=== PATIENT | female | born 1940 | race African-American/Black ===

== ENCOUNTER 2017-04-17 07:52 | Inpatient (IN) | payer OTHER, BC ==
[~2017-04-17] VITALS: Ht 162.6 cm; Wt 81.5 kg
--- NOTE | ~2017-04-17 | HC ---
[facility] [place] [address] CONSULTATION Name: LESLI SUN Mejia Room #: [facility] IN M.R.#: [id number] Admission: 04/17/17 Attend Phys: Gabino Renner DO Discharge: Date of : 39 Report #: [id number] THIS REPORT FOR: //name// CC: Camilo Renner DATE OF SERVICE: 04/17/2017 I have been asked to evaluate this 76-year-old lady who has come to the emergency room with chief complaint of abdominal pain, vomiting with progressive distention of the abdomen in the last 12 hours. The patient totally unable to accept placement of an NG tube by the nursing staff or myself. She is stating that she had the onset of vomiting last p.m., the cramping has intensified, and she denies passing flatus or stool in the last 24 hours. PAST MEDICAL HISTORY: Consistent with hypertension, anemia, hypothyroidism, hyperlipidemia, and GERD. PAST SURGICAL HISTORY: Pelvic surgery 35-40 years ago, remote with what appears to be removal of a fibroid tumor. This was through a low Pfannenstiel incision. MEDICATIONS: Atenolol 25 mg daily, lovastatin, Mevacor 20 mg daily; Synthroid 0.088 mg daily, and Protonix. ALLERGIES: No known drug allergies. SOCIAL HISTORY: Unremarkable. She denies smoking cigarettes, does not drink alcohol. Lives by herself, has one daughter. REVIEW OF SYSTEMS: A 10-point review of systems essentially noncontributory. She has been in good health. PHYSICAL EXAMINATION: GENERAL: Reveals an elderly -Swiss lady, resting comfortably in bed, conversant, daughter at the bedside. VITAL SIGNS: Stable. She is afebrile. HEENT: Pupils are equal, round, react to light. Extraocular movements within normal limits. No scleral icterus. NECK: Supple, no adenopathy. LUNGS: Clear bilaterally. CARDIOVASCULAR: Regular rate and rhythm. ABDOMEN: Mild distention. No guarding or rebound, some mild tenderness in the lower abdomen. RECTAL: Not performed. NEUROLOGIC: She is oriented x3, bilateral motor symmetry. [facility] [address] [place] [address] CONSULTATION Name: LESLI SUN Mejia Room #: 241-P ADM IN ..#: [id number] Admission: 04/17/17 Attend Phys: Gabino Renner DO Discharge: Date of : 39 Report #: [id number] LABORATORY DATA: Demonstrates labs essentially within normal limits. The CT scan is consistent with a distal small-bowel obstruction. DIAGNOSTIC IMPRESSION: Since the patient will not accept placement of an NG tube, IV fluids and n.p.o. status would be recommended now. If the patient has progressive distention or more severe pain in the next 12-24 hours, she will need diagnostic laparoscopy and possible exploratory laparotomy with release of the small-bowel obstruction. Thank you for allowing us to participate in her care and we will follow her with you. <ELECTRONICALLY SIGNED> By: Mateo Rogers MD, FACS 04/21/17 1008 1618 0135 Mateo Rogers MD, FACS /nt
--- NOTE | ~2017-04-17 | EKG ---
[place] [address] [employer] [place] [address] ELECTROCARDIOGRAM REPORT Name: LESLI SUN Mejia Room #: 241-P ADM IN M.R.#: [id number] Admission: 04/17/17 Attend Phys: Gabino Renner DO Discharge: Date of : 39 Report #: [id number] THIS REPORT FOR: //name// [facility] Test Date: 2017-04-20 Test Time: 14:32:53 Pat Name: LESLI SUN Department: Room: 241 Gender: F Coat Joiner: Bernardino SINGH : 1940 Requested By: Jenelle Melara Order Number: [id number] MD: Madhav Whelan Measurements Intervals [place] Rate: 116 P: 0 PA: 88 QRS: 12 QRSD: 108 T: 231 QT: 280 QTc: 389 Interpretive Statements Atrial flutter with 2-1 AV conduction RSR' in V1 or V2, right VCD Nonspecific repol abnormality, no significant change was found Electronically Signed On 04-22-2017 8:41:57 CDT by Madhav Whelan [email or web address] <ELECTRONICALLY SIGNED> By: Madhav Whelan MD, [facility] 04/22/17 0841 1432 143 Madhav Whelan MD, [facility] /EPI
--- NOTE | ~2017-04-17 | HC ---
[facility] [place] [address] CONSULTATION Name: LESLI SUN Mejia Room #: 429-P [facility] IN M.R.#: [id number] Admission: 04/17/17 Attend Phys: Gabino Renner, Discharge: 04/26/17 Date of : 39 Report #: [id number] THIS REPORT FOR: //name// CC: Camilo Renner DATE OF SERVICE: 04/20/2017 PULMONARY CRITICAL CARE CONSULTATION REFERRING PROVIDER: Mateo Rogers M.D. REASON FOR CONSULTATION: Arrest, pulmonary embolism. HISTORY OF PRESENT ILLNESS: Our group was responded emergently to code blue call. The patient was on 4 North in room 406 and had a witnessed arrest. Had been ambulating in the miller 3 days postoperative from adhesiolysis for small-bowel obstruction. No other significant interventions, ambulating and plans to discharge. However, while ambulating, the patient became unresponsive, taken back to room and initially had CPR due to lack of pulse and bag ventilation. When finally connected to telemetry monitoring, the patient had tachycardia, pulse had returned after just a couple of minutes of CPR. Presumed PE was the diagnosis. The patient required emergent intubation, which I performed as well as placed on heparin after giving an IV bolus prior to CT imaging. The patient was then stabilized on 4 North and taken to CT scan pulmonary emboli work and is now in ICU on mechanical ventilatory support, speaking with daughter. By other history, the patient has no other cardiac or pulmonary history. ALLERGIES: None known. PAST MEDICAL HISTORY: 1. Hypertension. 2. Hypothyroidism. 3. Anemia, unclear etiology, currently on iron replacement. OUTPATIENT MEDICATIONS: Include iron, Protonix, Synthroid, lovastatin and atenolol. SOCIAL HISTORY: Never smoker. No alcohol consumption. FAMILY HISTORY: Not obtainable due to current status. [facility] [address] [place] [address] CONSULTATION Name: LESLI SUN Room #: 429-P [facility]#: [id number] Admission: 04/17/17 Attend Phys: Gabino Renner DO Discharge: 04/26/17 Date of : 39 Report #: [id number] REVIEW OF SYSTEMS: Otherwise, unobtainable due to her current neurologic status. PHYSICAL EXAMINATION: VITAL SIGNS: Afebrile. Pulse 110, but regular; respiratory rate 30 and blood pressure 140/72. GENERAL: This is an elderly woman, arousable with some head nodding at this time, obviously uncomfortable. ENT: A 7.[address] Some dental loss noted. No oropharyngeal erythema or edema appreciated. NECK: Supple. Mild jugular venous distention noted. LUNGS: Essentially clear. No wheezes or crackles. CARDIOVASCULAR: Heart regular, but tachycardic. No murmurs appreciated. ABDOMEN: Distended. A midline incision was clean and dry, with shanthi in place. Diminished bowel sounds noted. EXTREMITIES: Cool distally, but 2+ pulses noted both in the upper and lower extremities throughout. LABORATORY DATA: White blood cell count 12,000, hemoglobin 10, hematocrit 33 and platelet count 219,000. Sodium is 138, potassium 5.3, chloride 107, bicarbonate 18, BUN 17, creatinine 0.[address] scan of the chest PE protocol reveals multiple pulmonary emboli, as described in the HPI. Dense right basilar atelectasis also appreciated with minimal right and left pleural effusions also noted. IMPRESSION: 1. Venous thromboembolism with significant pulmonary emboli, causing acute arrest with minimal need for CPR. 2. Status post cardiopulmonary arrest. 3. Acute respiratory failure secondary to above. 4. Right basilar infiltrate or atelectasis. The patient could have aspirated during event or may just be dense atelectasis. Would cover with antibiotics for aspiration pneumonia and check sputum cultures to prove it otherwise. 5. History of hypertension. 6. History of hypothyroidism. SUGGESTIONS: 1. As outlined above, continue with heparin drip, but if remains stable, convert to Lovenox. 2. Discussed at length with nursing, Dr. Jacobs, Dr. Rogers and the patient's daughter. Total critical care time, not including intubation or any other procedures, was 90 minutes to this point. <ELECTRONICALLY SIGNED> By: Bunny Cook MD 04/28/17 1304 1551 0059 Bunny Cook MD /nt
--- NOTE | ~2017-04-17 | S ---
[facility] [place] [address] SURGICAL PATH RPT PROCEDURE Name: LESLI SUN Mejia Room #: 429-P ADM IN M.R.#: [id number] Admission: 04/17/17 Date of : 39 Discharge: Report #: [id number] Path Case #: [id number] PATHOLOGY REPORT COLLECTION DATE: 04/18/2017 RECEIVED DATE: 04/19/2017 SUBMITTING PHYS: Dr. Mateo Rogers OTHER PHYS: Dr. Gabino Braswell * AMENDED (CORRECTED) REPORT * SPECIMEN(S) RECEIVED: A.Adhesive bands * * * * * * * * * * * * FINAL DIAGNOSIS: Soft tissue, "adhesive band," removal: - Dense fibrovascular connective tissue associated with congestion compatible with an adhesive band. (IUV:mgr; 04/20/2017) COMMENT: This amendment is issued to correct the patient's date of -04/21/2017 PATHOLOGIST: Gay Patino M.D. REPORT ELECTRONICALLY SIGNED BY: Gay Patino M.D. DATE/TIME: 04/25/2017 09:46 * * * * * * * * * * * * GROSS PATHOLOGY: The specimen is received in formalin, labeled "Mustapha, adhesive band are two glistening, garza, and red brown tissue segments each averaging 3.7 cm in length by 0.3 cm in diameter. The specimen is totally submitted as A1. (EARNEST; 04/19/2017) CLINICAL HISTORY: Umbilical hernia INITIAL CPT CODE(S): 87865 Professional services performed by [facility] at [facility] [address] , [place] [address] [facility] [address] [place] [address] SURGICAL PATH RPT PROCEDURE Name: LESLI SUN Room #: 429-P ADM IN M.R.#: [id number] Admission: 04/17/17 Date of : 39 Discharge: Report #: [id number] Path Case #: [id number] [facility] by [facility] at [address] [place] [address], [facility] [address], [place] [address]. Aj Draper [facility] [address] [address] PHONE: [phone] DIRECTOR: Yanick Ariza M.D. * * * END OF REPORT * * *
--- NOTE | ~2017-04-17 | O ---
[facility] [place] [address] OPERATIVE REPORT Name: LESLI SUN Mejia Room #: 241-P [facility] IN M.R.#: [id number] Admission: 04/17/17 Attend Phys: Gabino Renner DO Discharge: Date of : 39 Report #: [id number] THIS REPORT FOR: //name// CC: Camilo Renner DATE OF SERVICE: 04/18/2017 PREOPERATIVE DIAGNOSES: 1. Small-bowel obstruction. 2. A 1.5 cm umbilical hernia. POSTOPERATIVE DIAGNOSES: 1. Small-bowel obstruction secondary to dense matted adhesions of the distal ileum adherent to the apex of the uterus. 2. A 1.5 cm umbilical hernia. PROCEDURE: Diagnostic laparoscopy with conversion to exploratory laparotomy with lysis of adhesions 25 minutes and release of small-bowel obstruction and open primary repair of 1.5 cm umbilical hernia. SURGEON: Mateo Rogers M.D. GEAR MACHINE OPERATOR GENERAL: Patty Barfield MS3. INDICATIONS: A 76-year-old lady who presented in the last 24 hours to the Emergency Department with chief complaint of cramping abdominal pain associated with nausea and vomiting. The pain began the evening prior to admission. She has refused an NG tube in the Emergency Department by the nursing staff as well as myself. She was placed on IV fluids and bowel rest and has progressive more distention at the time of reexamination. She now requires emergent surgery. OPERATIVE PROCEDURE: The patient had a thorough discussion of the procedure, benefits and risks. Her daughter was in attendance. She gave informed consent to proceed. She was brought to the operating room suite and had satisfactory induction of general endotracheal anesthesia. The patient had a Viveros catheter placed. She had a sterile prep and paint of the entire abdomen with DuraPrep solution. After draping was completed, an appropriate timeout was then performed. Initially, 0.5% plain Naropin was injected at all trocar sites. Initially, entrance to the peritoneal cavity was obtained through a left subcostal Optiport ____ trocar device with a 5 mm laparoscope. The peritoneal cavity was entered. Pneumoperitoneum was established. Two lateral 5 mm trocar ports were then placed under direct vision. Lysis of adhesions to the laparoscope with the sharp cold scissors was performed for approximately 20 minutes. No headway was being made as far as delivering the obstructed small bowel from the pelvis. An intraoperative decision was then made to perform an [address] [address] OPERATIVE REPORT Name: LESLI SUN Mejia Room #: 241-P [facility] IN [facility]#: [id number] Admission: 04/17/17 Attend Phys: Gabino Renner DO Discharge: Date of : 39 Report #: [id number] exploratory laparotomy. The pneumoperitoneum was evacuated and trocars left in place. Attention was turned to the midline of the abdomen from slightly above the umbilicus to below and an exploratory laparotomy incision was performed. The small bowel was delivered in the field. The distal collapsed terminal ileum was identified. Matted loops of bowel over the terminal ileum were adherent to each other as well as adherent to the apex of the uterus. These were taken down with sharp dissection. The entire small bowel was freed up. There was a segment, approximately 10-15 cm in length of a possible closed loop obstruction. None of the bowel appeared ischemic in any way. The bowel was not strictured. Milking of succus entericus bowel contents distally was performed. Milking of small bowel contents proximally to the ligament of Treitz was also performed. Approximately 800 mL of greenish cloudy foul smelling fluid was evacuated from the NG tube. The NG tube was properly positioned in the stomach. No other intra-abdominal pathology was noted. After total lysis of adhesions for 25 minutes, the bowel was straightened out. Irrigation with 3 liters of saline was performed. Evacuation of all irrigating contents was accomplished. The fascia was then approximated from the inferior aspect of the incision with a looped #1 PDS running to the mid portion of the wound. The superior aspect of the incision was also approximated and closed with running looped #1 PDS. A 4 x 8 piece of material to minimize adhesions was placed between the bowel and the anterior abdominal wall inferiorly. Each of the #1 PDS sutures were ligated individually and then the tails were ligated together in the mid portion of the wound. The umbilical hernia was repaired by approximating the fascia in the mid portion of the wound. Irrigation of subcutaneous tissues was performed. Skin margins were stapled. The 3 trocar sites to the left of the abdomen where the skin had been opened were stapled shut. Estimated blood loss less than 25 mL. The patient returned to the recovery room in stable and satisfactory condition. <ELECTRONICALLY SIGNED> By: Mateo Rogers MD, FACS 04/21/17 1008 1612 1759 Mateo Rogers MD, FACS /nt
--- NOTE | ~2017-04-17 | EKG ---
[address] [place] [address] ELECTROCARDIOGRAM REPORT Name: LESLI SUN Mejia Room #: 406-P ADM IN M.R.#: [id number] Admission: 04/17/17 Attend Phys: Gabino Renner DO Discharge: Date of : 39 Report #: [id number] THIS REPORT FOR: //name// [facility] Test Date: 2017-04-19 Test Time: 15:08:55 Pat Name: LESLI SUN Department: Room: 406 P Gender: F Laborer General: Bernardino SINGH : 1940 Requested By: Mateo Rogers Order Number: [id number] MD: Madhav Whelan Measurements Intervals [place] Rate: 126 P: 42 DE: 154 QRS: -6 QRSD: 80 T: 210 QT: 345 QTc: 500 Interpretive Statements Sinus tachycardia Abnormal T, diffuse leads No previous ECG available for comparison Electronically Signed On 04-19-2017 17:11:11 CDT by Madhav Whelan [email or web address] <ELECTRONICALLY SIGNED> By: Madhav Whelan MD, [facility] 04/19/17 1711 1508 1508 Madhav Whelan MD, FACC /EPI
--- NOTE | ~2017-04-17 | EKG ---
[address] [address] ELECTROCARDIOGRAM REPORT Name: LESLI SUN Room #: 241-P ADM IN M.R.#: [id number] Admission: 04/17/17 Attend Phys: Gabino Renner DO Discharge: Date of : 39 Report #: [id number] THIS REPORT FOR: //name// [facility] Test Date: 2017-04-20 Test Time: 15:46:48 Pat Name: LESLI SUN Department: Room: 241 P Gender: F Rail [employer] Tabeler: Bernardino SINGH : 1940 Requested By: Gabino Renner Order Number: [id number] MD: Madhav Whelan Measurements Intervals [place] Rate: 137 P: 108 VA: 162 QRS: 8 QRSD: 89 T: 235 QT: 257 QTc: 388 Interpretive Statements Sinus tachycardia Repolarization abnormality, prob rate related Baseline wander in lead(s) II,aVF Compared to ECG 04/19/2017 15:08:55 Sinus tachycardia is replaced atrial flutter Electronically Signed On 04-22-2017 8:42:58 CDT by Madhav Whelan [email or web address] <ELECTRONICALLY SIGNED> By: Madhav Whelan MD, [facility] 04/22/17 0842 1546 1546 Madhav Whelan MD, [facility] /EPI
--- NOTE | ~2017-04-17 | 2DMMODE ---
[facility] [address] [place] [address] 2 D/M-MODE ECHOCARDIOGRAM Name: LESLI SUN Room #: 241-P [facility] IN [facility].#: [id number] Admission: 04/17/17 Attend Phys: Gabino Renner, Discharge: Date of : 39 Date of Service: 04/21/17 0859 Report #: [id number] THIS REPORT FOR: //name// APPROVED REPORT Study performed: 04/20/2017 16:54:26 EXAM: Comprehensive 2D, Doppler, and color-flow Echocardiogram Patient Location: ICU Room #: 241 Status: stat BSA: 1.79 HR: 107 bpm BP: 98/65 mmHg Other Information Study Quality: Good Indications Pulmonary Embolism Pulmonary Hypertension Hypertension/HDD HLP. 2D Dimensions RVDd: 45.02 mm LVEF(%): 71.71 (>50%) IVSd: 12.46 (7-11mm) LVOT Diam: 18.54 (18-24mm) LVDd: 29.85 mm PWd: 12.02 (7-11mm) Ascending Ao: 30.41 (22-36mm) LVDs: 18.04 (25-40mm) Aortic Root: 29.25 mm IVC: 22.00 mm Lee's LVEF: 71.71 % Volumes Left Atrial Volume (Systole) Single Plane 4CH: 40.86 mL Single Plane 2CH: 42.27 mL LA ESV Index: 26.00 mL/m2 Aortic Valve AoV Peak Nirmal.: 1.02 m/s AO Peak Gr.: 4.18 mmHg LVOT Max P.97 mmHg LVOT Max V: 0.86 m/s DEEPAK Vmax: 2.28 cm2 Pulmonary Valve [facility] [address] [place] [address] 2 D/M-MODE ECHOCARDIOGRAM Name: LESLI SUN Room #: [facility]#: [id number] Admission: 04/17/17 Attend Phys: Gabino Renner, Discharge: Date of : 39 Date of Service: 04/21/17 0859 Report #: [id number] PV Peak Nirmal.: 0.70 m/s PV Peak Gr.: 1.98 mmHg Tricuspid Valve TR Peak Nirmal.: 3.32 m/s TR Peak Gr.: 44.01 mmHg PA Pressure: 59.00 mmHg Left Ventricle The left ventricle is normal size. Mild concentric left ventricular hypertrophy. Left ventricular systolic function is normal. LVEF is 65%. This study is not technically sufficient to allow evaluation of the LV diastolic function due to tachycardia. Right Ventricle Right ventricle is dilated. Atria The left atrium size is normal. Right atrium is dilated. Aortic Valve The aortic valve is normal in structure. Aortic valve is calcified. No aortic regurgitation is present. There is no aortic valvular stenosis. Mitral Valve The mitral valve is normal in structure. There is no mitral valve regurgitation noted. No evidence of mitral valve stenosis. Tricuspid Valve The tricuspid valve is normal in structure. There is moderte tricuspid regurgitation. The right atrial pressure is estimated at 15 mmHg. There is moderate pulmonary hypertension. Pulmonic Valve The pulmonary valve is normal in structure. Trace pulmonic regurgitation. Great Vessels The aortic root is normal in size. The inferior vena cava is dilated with no inspiratory collapse. Pericardium Trace pericardial effusion. <Conclusion> The left ventricle is normal size. [facility] [place] [address] 2 D/M-MODE ECHOCARDIOGRAM Name: LESLI SUN Mejia Room #: 241-P [facility] IN M.R.#: [id number] Admission: 04/17/17 Attend Phys: Gabino Renner, Discharge: Date of : 38 Date of Service: 04/21/17 0859 Report #: [id number] Mild concentric left ventricular hypertrophy. Left ventricular systolic function is normal. Right ventricle is dilated. Right atrium is dilated. There is no aortic valvular stenosis. There is no mitral valve regurgitation noted. There is moderte tricuspid regurgitation. The right atrial pressure is estimated at 15 mmHg. There is moderate pulmonary hypertension. <ELECTRONICALLY SIGNED> By: Carlos Henriquez MD 04/21/17 0859 0859 0859 Carlos Henriquez MD /DAVIDE
[2017-04-17 08:17] VITALS: BP 148/62
[2017-04-17] MEDS ORDERED: PROTONIX40 M1 PO (08:34)
[2017-04-17] MEDS ORDERED: LEVOTHYROXIN0.088 MG PO (08:34)
[2017-04-17] MEDS ORDERED: LOVASTATIN 20 M20 MG PO (08:34)
[2017-04-17] MEDS ORDERED: ATENOLOL 25 MG25 M1 PO (08:34)
[2017-04-17 08:36] LABS: ABSOLUTE NEUTROPHILS 6.7 thou/uL (1.4-8.2); BASOPHILS 0.6 % (0.0-2.0); EOSINOPHILS 0.4 % (0.0-3.0); HEMATOCRIT 33.4 % (37.0-47.0); HEMOGLOBIN 10.9 gm/dL (12.0-15.0); LYMPHOCYTES 13.1 % (24.0-44.0); MCH 24.6 pg (26.0-34.0); MCHC 32.6 g/dL (28.0-37.0); MCV 75.5 fL (80.0-100.0); MONOCYTES 4.7 % (1.0-8.0); PLATELET COUNT 408 thou/uL (150-400); POLYS 81.2 % (36.0-66.0); RBC 4.43 mil/uL (4.20-5.00); RDW 23.2 % (10.5-14.5); WBC 8.3 thou/uL (4.0-11.0)
[2017-04-17 08:39] LABS: MANUAL DIFF NO
[2017-04-17 08:40] LABS: CALCIUM 9.9 mg/dL (8.5-10.1); CREATININE 0.7 mg/dL (0.6-1.0); POTASSIUM 4.3 mmol/L (3.5-5.1)
[2017-04-17 08:46] LABS: ALBUMIN 3.1 g/dL (3.4-5.0); TOTAL BILIRUBIN 0.2 mg/dL (<0.1-1.0); TOTAL PROTEIN 7.9 g/dL (6.4-8.2)
[2017-04-17 10:24] LABS: URINE BILIRUBIN NEGATIVE (Negative); URINE BLOOD NEGATIVE (Negative); URINE COLOR YELLOW; URINE GLUCOSE-RANDOM* NEGATIVE (Negative); URINE KETONES NEGATIVE (Negative); URINE PROTEIN (DIPSTICK) NEGATIVE (Negative); URINE SPECIFIC GRAVITY 1.015 (1.003-1.035); URINE UROBILINOGEN 0.2 E.U./dl (0.2-1.0)
[2017-04-17 10:25] LABS: URINE LEUKOCYTES-REFLEX TRACE (Negative)
[2017-04-17 14:46] VITALS: BP 156/92
[2017-04-17 15:46] VITALS: BP 151/83
[2017-04-17 16:30] VITALS: BP 146/73
[2017-04-17 19:37] VITALS: BP 138/62
[2017-04-18] VITALS (7 sets, daily range): BP systolic 110–137; BP diastolic 56–72
[2017-04-18 05:19] LABS: HEMOGLOBIN 11.7 gm/dL (12.0-15.0); MCHC 31.5 g/dL (28.0-37.0); MCV 76.2 fL (80.0-100.0); PLATELET COUNT 403 thou/uL (150-400); RBC 4.86 mil/uL (4.20-5.00); RDW 23.3 % (10.5-14.5); WBC 4.6 thou/uL (4.0-11.0)
[2017-04-18 05:21] LABS: MANUAL DIFF YES
[2017-04-18 05:40] LABS: CALCIUM 9.1 mg/dL (8.5-10.1); CREATININE 0.7 mg/dL (0.6-1.0); POTASSIUM 4.3 mmol/L (3.5-5.1)
[2017-04-18 06:36] LABS: ABSOLUTE NEUTROPHILS 3.9 thou/uL (1.4-8.2); ANISOCYTOSIS 3+; ATYPICAL LYMPHS 1 %; MACROCYTES 1+; MICROCYTES 2+; NUCLEATED RBCS 0 /100WBC; TOTAL CELL COUNT 100
[2017-04-18 14:29] LABS: % SATURATION 6 % (20-39); IRON 18 ug/dL (50-170); TIBC 319 ug/dL (250-450); UIBC 301 ug/dL
[2017-04-19 03:30] VITALS: BP 138/61
[2017-04-19 06:23] LABS: HEMATOCRIT 34.4 % (37.0-47.0); HEMOGLOBIN 11.1 gm/dL (12.0-15.0); MCH 24.4 pg (26.0-34.0); MCHC 32.2 g/dL (28.0-37.0); MCV 75.8 fL (80.0-100.0); RBC 4.54 mil/uL (4.20-5.00); WBC 6.7 thou/uL (4.0-11.0)
[2017-04-19 06:24] LABS: MANUAL DIFF YES; PLATELET COUNT 269 thou/uL (150-400)
[2017-04-19 06:34] LABS: CALCIUM 8.2 mg/dL (8.5-10.1); CREATININE 0.8 mg/dL (0.6-1.0); POTASSIUM 4.6 mmol/L (3.5-5.1)
[2017-04-19 08:25] VITALS: BP 131/66
[2017-04-19 08:41] LABS: ABSOLUTE NEUTROPHILS 5.8 thou/uL (1.4-8.2); ANISOCYTOSIS 2+; METAMYELOCYTES 3 %; PLATELET ESTIMATE NORMAL; POLYCHROMASIA SLIGHT; TOTAL CELL COUNT 100
[2017-04-19 11:36] VITALS: BP 125/72
[2017-04-19 12:45] VITALS: BP 133/70
[2017-04-19 15:47] VITALS: BP 139/72
[2017-04-19 20:00] VITALS: BP 143/64
[2017-04-20] VITALS (18 sets, daily range): BP systolic 90–152; BP diastolic 55–76
[2017-04-20 06:20] LABS: HEMATOCRIT 31.5 % (37.0-47.0); MCH 24.6 pg (26.0-34.0); MCHC 31.9 g/dL (28.0-37.0); MCV 77.1 fL (80.0-100.0); PLATELET COUNT 230 thou/uL (150-400); RBC 4.08 mil/uL (4.20-5.00); WBC 8.9 thou/uL (4.0-11.0)
[2017-04-20 06:31] LABS: CALCIUM 8.7 mg/dL (8.5-10.1); CREATININE 0.7 mg/dL (0.6-1.0); POTASSIUM 4.5 mmol/L (3.5-5.1); TOTAL BILIRUBIN 0.3 mg/dL (<0.1-1.0)
[2017-04-20 06:40] LABS: MANUAL DIFF YES
[2017-04-20 08:13] LABS: ABSOLUTE NEUTROPHILS 7.6 thou/uL (1.4-8.2); TOTAL CELL COUNT 100
[2017-04-20 08:15] LABS: ANISOCYTOSIS 2+
[2017-04-20 14:58] LABS: HEMATOCRIT 33.4 % (37.0-47.0); HEMOGLOBIN 10.3 gm/dL (12.0-15.0); MCH 24.1 pg (26.0-34.0); MCHC 30.7 g/dL (28.0-37.0); MCV 78.3 fL (80.0-100.0); RBC 4.27 mil/uL (4.20-5.00); RDW 23.4 % (10.5-14.5); WBC 12.3 thou/uL (4.0-11.0)
[2017-04-20 15:04] LABS: ANION GAP 13 mmol/L (7-16); BUN 17 mg/dL (7-18); CALCIUM 9.1 mg/dL (8.5-10.1); CHLORIDE 107 mmol/L (98-107); CO2 18 mmol/L (21-32); CREATININE 0.8 mg/dL (0.6-1.0); GLUCOSE 118 mg/dL (74-106); POTASSIUM 5.3 mmol/L (3.5-5.1); SODIUM 138 mmol/L (136-145)
[2017-04-20 15:12] LABS: ALKALINE PHOSPHATASE 69 U/L (46-116); SGOT 48 U/L (15-37); SGPT 34 U/L (30-65); TOTAL BILIRUBIN 0.3 mg/dL (<0.1-1.0); TOTAL PROTEIN 6.4 g/dL (6.4-8.2); TROPONIN-I < 0.04 ng/mL (<0.04-0.07)
[2017-04-20 16:41] LABS: ABG SAMPLE TYPE ARTERIAL; BE(vivo) -11.3 mmol/L (-2 to +3); HCO3 14.6 mmol/L (22.0-26.0); LACTATE 1.48 mmol/L (0.5-2.0); O2(CT) 14.3 mL/dL (15.0-23.0); O2Hb 95.5 % (92.0-98.0); PCO2 32.8 mmHg (35.0-45.0); PO2 100.3 mmHg (80.0-100.0); sO2 96.8 % (92.0-98.0); tCO2 15.6 mmol/L (24.0-30.0)
[2017-04-20 16:42] LABS: STICK SITE R.RADIAL; pH 7.267 (7.360-7.450)
[2017-04-20 21:52] LABS: CALCIUM 8.4 mg/dL (8.5-10.1); CREATININE 0.6 mg/dL (0.6-1.0)
[2017-04-20 21:53] LABS: POTASSIUM 4.3 mmol/L (3.5-5.1)
[2017-04-20 21:54] LABS: ABG SAMPLE TYPE ARTERIAL; BE(vivo) -5.7 mmol/L (-2 to +3); HCO3 18.7 mmol/L (22.0-26.0); LACTATE 1.04 mmol/L (0.5-2.0); O2(CT) 13.1 mL/dL (15.0-23.0); PCO2 32.4 mmHg (35.0-45.0); PO2 127.4 mmHg (80.0-100.0); pH 7.379 (7.360-7.450); sO2 98.5 % (92.0-98.0); tCO2 19.7 mmol/L (24.0-30.0)
[2017-04-20 21:55] LABS: STICK SITE L.RADIAL; TIDAL VOLUME 500 ml
[2017-04-21] VITALS (32 sets, daily range): BP systolic 86–167; BP diastolic 55–81
[2017-04-21 04:45] LABS: HEMOGLOBIN 9.3 gm/dL (12.0-15.0); MCH 24.6 pg (26.0-34.0); MCHC 32.1 g/dL (28.0-37.0); MCV 76.6 fL (80.0-100.0); PLATELET COUNT 214 thou/uL (150-400); RBC 3.79 mil/uL (4.20-5.00); RDW 23.2 % (10.5-14.5); WBC 7.8 thou/uL (4.0-11.0)
[2017-04-21 04:50] LABS: MANUAL DIFF YES
[2017-04-21 04:55] LABS: CALCIUM 8.1 mg/dL (8.5-10.1); CREATININE 0.5 mg/dL (0.6-1.0); MAGNESIUM 2.3 mg/dL (1.8-2.4); POTASSIUM 4.3 mmol/L (3.5-5.1)
[2017-04-21 05:43] LABS: ABG SAMPLE TYPE ARTERIAL; BE(vivo) -6.5 mmol/L (-2 to +3); HCO3 17.3 mmol/L (22.0-26.0); LACTATE 0.99 mmol/L (0.5-2.0); O2(CT) 13.3 mL/dL (15.0-23.0); O2Hb 96.9 % (92.0-98.0); PCO2 28.3 mmHg (35.0-45.0); PO2 113.1 mmHg (80.0-100.0); STICK SITE L.RADIAL; pH 7.403 (7.360-7.450); sO2 98.2 % (92.0-98.0); tCO2 18.1 mmol/L (24.0-30.0)
[2017-04-21 05:44] LABS: TIDAL VOLUME 500 ml
[2017-04-21 08:27] LABS: ABSOLUTE NEUTROPHILS 5.9 thou/uL (1.4-8.2); ANISOCYTOSIS 2+; TOTAL CELL COUNT 100
[2017-04-21 17:08] LABS: ABG SAMPLE TYPE ARTERIAL; BE(vivo) -4.7 mmol/L (-2 to +3); LACTATE 0.86 mmol/L (0.5-2.0); O2(CT) 16.1 mL/dL (15.0-23.0); O2Hb 96.3 % (92.0-98.0); PCO2 30.8 mmHg (35.0-45.0); PO2 89.2 mmHg (80.0-100.0); pH 7.407 (7.360-7.450); tCO2 19.9 mmol/L (24.0-30.0)
[2017-04-21 17:09] LABS: ABG COMMENT 1 HR CPAP TRIAL; Pressure Support 8 cm H20; STICK SITE L.BRACHIAL
[2017-04-22] VITALS (19 sets, daily range): BP systolic 128–182; BP diastolic 57–158
[2017-04-22 13:44] LABS: SACCHAROMYCES IGA < 20.0 Units (0.0-24.9); SACCHAROMYCES IGG < 20.0 Units (0.0-24.9)
[2017-04-23 04:31] VITALS: BP 132/67
[2017-04-23 08:59] VITALS: BP 127/72
[2017-04-23 16:36] VITALS: BP 143/76
[2017-04-23 20:00] VITALS: BP 130/77
[2017-04-24 04:12] VITALS: BP 149/77
[2017-04-24 07:59] VITALS: BP 137/72
[2017-04-24 15:23] VITALS: BP 145/64
[2017-04-24 19:22] VITALS: BP 131/71
[2017-04-25 04:24] VITALS: BP 134/67
[2017-04-25 05:36] LABS: HEMOGLOBIN 8.7 gm/dL (12.0-15.0); PLATELET COUNT 291 thou/uL (150-400); RDW 22.7 % (10.5-14.5)
[2017-04-25 05:39] LABS: ABSOLUTE NEUTROPHILS 5.4 thou/uL (1.4-8.2); BASOPHILS 0.3 % (0.0-2.0); EOSINOPHILS 2.2 % (0.0-3.0); HEMATOCRIT 27.1 % (37.0-47.0); LYMPHOCYTES 10.8 % (24.0-44.0); MCH 23.9 pg (26.0-34.0); MCV 74.9 fL (80.0-100.0); MONOCYTES 8.6 % (1.0-8.0); POLYS 78.1 % (36.0-66.0); RBC 3.62 mil/uL (4.20-5.00); WBC 6.9 thou/uL (4.0-11.0)
[2017-04-25 05:41] LABS: MANUAL DIFF NO
[2017-04-25 05:57] LABS: CALCIUM 8.7 mg/dL (8.5-10.1); CREATININE 0.5 mg/dL (0.6-1.0); POTASSIUM 3.5 mmol/L (3.5-5.1)
[2017-04-25 07:40] VITALS: BP 130/70
[2017-04-25 10:33] LABS: ANISOCYTOSIS 1+; HYPOCHROMASIA 1+; POIKILOCYTOSIS SLIGHT; TARGET CELLS OCCASIONAL
[2017-04-25 16:00] VITALS: BP 129/72
[2017-04-25 20:00] VITALS: BP 150/86
[2017-04-26 05:45] VITALS: BP 134/68
[2017-04-26 07:20] VITALS: BP 126/69
[2017-04-26] MEDS ORDERED: ELIQUIS5 MG PO (10:16)
[2017-04-26] MEDS ORDERED: AUGMENTIN 875-1 EACH PO (10:16)
== END 2017-04-26 13:45 | DRG 335 ==
LOC: ER 07:52 → 4N 14:01 → 4E 14:01 → EROBS 14:01 → 4N 15:47 → ICU 04-20 15:28 → 4E 04-22 17:43
PROVIDERS: Emergency Medicine; Internal Medicine; Internal Medicine Endocrinology, Diabetes & Metabolism; Internal Medicine Geriatric Medicine; Internal Medicine Pulmonary Disease; Nurse Practitioner; Nurse Practitioner Family; Specialist; Surgery
PROC: 0WUF0JZ Supplement Abdominal Wall with Synthetic Substitute, Open Approach (ICD-10-PCS; principal; 2017-04-18)
PROC: 0WJP4ZZ Inspection of Gastrointestinal Tract, Percutaneous Endoscopic Approach (ICD-10-PCS; 2017-04-18)
PROC: 0DN80ZZ Release Small Intestine, Open Approach (ICD-10-PCS; 2017-04-18)
PROC: 5A12012 Performance of Cardiac Output, Single, Manual (ICD-10-PCS; 2017-04-20)
PROC: 5A1945Z Respiratory Ventilation, 24-96 Consecutive Hours (ICD-10-PCS; 2017-04-20)
PROC: 0BH17EZ Insertion of Endotracheal Airway into Trachea, Via Natural or Artificial Opening (ICD-10-PCS; 2017-04-20)
DX: K42.0 Umbilical hernia with obstruction, without gangrene (principal); K65.9 Peritonitis, unspecified; I26.99 Other pulmonary embolism without acute cor pulmonale; J96.00 Acute respiratory failure, unspecified whether with hypoxia or hypercapnia; E43 Unspecified severe protein-calorie malnutrition; I46.9 Cardiac arrest, cause unspecified; J98.11 Atelectasis; T81.718A Complication of other artery following a procedure, not elsewhere classified, initial encounter; K52.9 Noninfective gastroenteritis and colitis, unspecified; I10 Essential (primary) hypertension; E03.9 Hypothyroidism, unspecified; E78.5 Hyperlipidemia, unspecified; K21.9 Gastro-esophageal reflux disease without esophagitis; D50.9 Iron deficiency anemia, unspecified; Z68.30 Body mass index [BMI] 30.0-30.9, adult
CPT/HCPCS: 10078; 10783; 10790; 50101; 50249; 50386; 50455; 50555; 51114; 51412; 51489; 52265; 53307; 54022; 56462; 56526; 56527; 56528; 56771; 57092; 62110; 62900; 70005

== ENCOUNTER 2017-04-26 10:11 | Inpatient (IN) | payer OTHER, BC ==
[~2017-04-26] VITALS: Ht 152.4 cm; Wt 89.4 kg
--- NOTE | ~2017-04-26 | HC ---
[facility] [place] [address] CONSULTATION Name: LESLI SUN Mejia Room #: 509-P ADM IN M.R.#: [id number] Admission: 04/26/17 Attend Phys: Jozef Humphries MD Discharge: Date of : 39 Report #: [id number] THIS REPORT FOR: //name// CC: Jozef Braswell DATE OF SERVICE: 04/29/2017 PROGRESS NOTE/OVERALL PLAN OF CARE The patient was seen back today in followup. She is in no distress. Temperature 36.6, pulse 81, respirations 18, blood pressure 113/60. She is feeling better. She had the antibiotics stopped, which she thought were contributing to some nausea. She has had some loose stools and there has been C. diff toxin tested to the labs. Transfers are contact-guard with gait contact guard 125 feet with a front-wheeled walker. In occupational therapy, upper body dressing is supervision with lower body dressing, mod-assist. Her lower abdominal incision appears to be intact. Bill are in place. ASSESSMENT: 1. Medical complex with generalized debilitation. 2. Small-bowel obstruction, status post surgery 04/18/2017. 3. Multiple pulmonary emboli after surgery. 4. Code blue with respiratory failure. 5. Colitis with inflammation noted of the ascending hepatic flexure of the colon. 6. Hypertension. 7. Anemia. PLAN: The overall plan of care is based on the preadmission screen, post-admission physician evaluation and information garnered from therapy assessments. 1. Estimated length of stay is probably 7-14 days pending progress. 2. Medical prognosis is reasonably good. 3. Anticipated interventions includes the interdisciplinary acute inpatient rehabilitation program with PT, OT, rehab nursing assisting regarding medication management, skin care prophylaxis, bowel and bladder issues and nursing education. 4. Anticipated functional outcomes would be for the patient to become modified independent with transfers, mobility and ADLs with the hopes of returning back to the home setting. 5. Discharge destination would be back home where the patient lives in a house with her . 6. Expected therapy by discipline includes PT and OT 1-1/2 hours per day each [facility] [address] [place] [address] CONSULTATION Name: LESLI SUN Room #: 509-P [facility] IN ..#: [id number] Admission: 04/26/17 Attend Phys: Jozef Humphries MD Discharge: Date of : 39 Report #: [id number] five days a week throughout the duration of the acute inpatient rehabilitation stay. <ELECTRONICALLY SIGNED> By: Jozef Humphries MD 05/04/17 1232 0946 1610 Jozef Humphries MD /[facility]
--- NOTE | ~2017-04-26 | HC ---
[facility] [place] [address] CONSULTATION Name: LESLI SUN Mejia Room #: 509-P [facility] IN ..#: [id number] Admission: 04/26/17 Attend Phys: Jozef Humphries MD Discharge: Date of : 39 Report #: [id number] THIS REPORT FOR: //name// CC: Jozef Braswell DATE OF SERVICE: 04/26/2017 HISTORY OF PRESENT ILLNESS: This is a 76-year-old -Singaporean female who was admitted with abdominal pain, nausea, was diagnosed with a small-bowel obstruction. This was thought to be secondary to adhesions from a prior remote pelvic surgery. The patient underwent an exploratory laparotomy with lysis of adhesions and release of small-bowel obstruction on 04/18/2017. She was progressing up, ambulating with physical therapy, on 04/20/2017 when she collapsed. She was noted to be bradycardic, underwent emergent intubation. Workup was consistent with multiple pulmonary emboli. Her course was complicated by respiratory failure on O2. Pulmonary medicine has been involved. The NG tube has now been removed. She does still have evidence of colitis. There was noted to be inflammation of the ascending hepatic flexure of the colon. She has medical complexity with generalized debilitation and we are seeing her in rehabilitation medicine consultation. PAST MEDICAL HISTORY: Includes hypertension, anemia, hypothyroidism, hypertension, GERD. MEDICATIONS: Please see the full medication listing. ALLERGIES: No known drug allergies. HABITS: No history of tobacco or alcohol abuse. SOCIAL HISTORY: The patient lives in a house with her . He works during the day, but is there at night. There is one step in. She did not utilize gait aids, was independent with ADLs, driving in the community. There is an involved sister that is currently here from [place]. REVIEW OF SYSTEMS: No current complaints of chest pain, shortness of breath or abdominal discomfort. Complains of generalized weakness. 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 No other focal joint complaints at this time. PHYSICAL EXAMINATION: GENERAL: A 76-year-old -[place]an female in no obvious distress. VITAL SIGNS: Last recorded temperature is 98, pulse 84, respirations 20, blood pressure 126/69. The patient is alert. She is pleasant. HEENT: Appeared to be benign. The NG tube has been removed. She is able to [facility] [address] [place] [address] CONSULTATION Name: LESLI SUN Room #: 509-P [facility] IN .R.#: [id number] Admission: 04/26/17 Attend Phys: Jozef Humphries MD Discharge: Date of : 39 Report #: [id number] express herself reasonably well. She has the midline abdominal incision with shanthi in place. She has functional range of motion of both upper extremities with strength grade 4-/5. DTRs are trace to 1. In her lower extremities, there is functional range of motion with strength grade 3+ to 4-/5. DTRs are trace to 1. She is min assist with sit to stand. She is ambulating 80 feet contact guard with a front-wheeled walker. Tends to fatigue very quickly. ASSESSMENT: A 76-year-old -[place] female with the following problem list: 1. Medical complexity with generalized debilitation. 2. Small-bowel obstruction, status post surgery 04/18/2017. 3. Multiple pulmonary emboli after surgery. 4. Code blue with respiratory failure, improved. 5. Colitis with inflammation noted of the ascending hepatic flexure of the colon. 6. Hypertension. 7. Anemia. PLAN: The patient is a candidate for an acute in-hospital inpatient rehabilitation stay. From a preadmission screening perspective: 1. Prior level of function is well delineated above. 2. Expected level of improvement would be for the patient to become modified independent with transfers, mobility and ADLs that she can hopefully return back to her prior living situation. We would anticipate a fairly short length of stay of may be around 7 days to 14 days pending progress. 3. Evaluation of the patient's risk for clinical complications. She does have multiple medical comorbidities as noted above. 4. Condition that caused the need for rehabilitation is the small-bowel obstruction, status post exploratory laparotomy, complicated by the multiple pulmonary emboli. Her actual diagnosis is medical complexity with generalized debilitation. 5. Treatments needed would include PT and OT 1 and 1-1/2 hours per day each five days a week throughout the duration of the acute inpatient rehabilitation stay. 6. Anticipated discharge destination is back to the home setting. 7. Anticipated post-discharge treatments would include home healthcare, PT, OT and nursing. 8. The patient meets diagnostic criteria for an acute in-hospital inpatient rehabilitation stay. She meets medical necessity criteria with the multiple medical issues as noted above. We would have the same building consultant physicians to follow while she is on the rehab reddy. She does have the tolerance for an acute [facility] [address] [place] [address] CONSULTATION Name: LESLI SUN Room #: 509-P [facility] IN [place].#: [id number] Admission: 04/26/17 Attend Phys: Jozef Humphries MD Discharge: Date of : 39 Report #: [id number] inpatient rehab level of care and has appropriate discharge goals back to the home setting. <ELECTRONICALLY SIGNED> By: Jozef Humphries MD 04/28/17 1608 [id number] [id number] Jozef Humphries MD /nt
--- NOTE | ~2017-04-26 | H ---
[facility] [place] [address] HISTORY AND PHYSICAL Name: LESLI SUN Room #: 509-P ADM IN M.R.#: [id number] Admission: 04/26/17 Attend Phys: Jozef Humphries MD Discharge: Date of : 39 Report #: [id number] THIS REPORT FOR: //name// CC: Jozef Braswell DATE OF SERVICE: 04/26/2017 HISTORY AND PHYSICAL AND POSTADMISSION PHYSICIAN EVALUATION HISTORY OF PRESENT ILLNESS: The patient is a 76-year-old -Algerian female who was originally admitted to [facility] with abdominal pain, nausea and diagnosed with a small-bowel obstruction. This was thought to be secondary to adhesions from a prior remote pelvic surgery. She underwent an exploratory laparotomy with lysis of adhesions and release of small-bowel obstruction on 04/18/2017. She was progressing, started ambulating with physical therapy when on 04/20/2017 she collapsed. She was noted to be bradycardic, underwent emergency intubation. Workup was consistent with multiple pulmonary emboli. Her course was complicated by respiratory failure, on O2. Pulmonary Medicine was involved. Her NG tube was removed. She was noted to have evidence of colitis with inflammation of the ascending hepatic flexure of the colon. She was noted to have medical complexity with generalized debilitation and has been admitted now for acute in-hospital inpatient rehabilitation. PAST MEDICAL HISTORY: Includes hypertension, anemia, hypothyroidism, hypertension and GERD. MEDICATIONS: Please see the full medication listing. Each of these was individually reconciled upon admission. The list includes her vitamins, herbals and supplements. ALLERGIES: No known drug allergies. HABITS: No history of tobacco or alcohol abuse. SOCIAL HISTORY: The patient lives in a house with her . He works during the day, but is there at night. There is one step in. She did not utilize gait aids, was independent in ADLs, driving in the community premorbidly. There is an involved sister that is visiting from [place]. REVIEW OF SYSTEMS: No current complaints of chest pain or shortness of breath. She does have complaints of some nausea and notes that she does not like the antibiotics that she is on. This was relayed to nursing. No focal extremity pain complaints. [facility] [address] [place] [address] HISTORY AND PHYSICAL Name: LESLI SUN Room #: 509-P [facility] IN [facility]#: [id number] Admission: 04/26/17 Attend Phys: Jozef Humphries MD Discharge: Date of : 39 Report #: [id number] PHYSICAL EXAMINATION: GENERAL: A 76-year-old -Algerian female, in no obvious distress. The patient is alert, pleasant. VITAL SIGNS: Last recorded temperature 98.5, pulse 93, respirations 20 and blood pressure 134/68. HEENT: Appeared to be benign. Cranial nerves are grossly intact. Facies appeared symmetric. CHEST: Sounded clear to auscultation. CARDIOVASCULAR: Regular rate and rhythm. ABDOMEN: Obese. Lower abdominal midline incision appears to be intact with shanthi in place. Bowel sounds were present but decreased. No focal tenderness was noted. EXTREMITIES: Upper extremities revealed functional range of motion. Strength is grade 4-/5. DTRs are trace to 1. Lower extremities: No focal calf swelling. Functional range of motion with strength grade 3+ to 4-/5. She does tend to fatigue quickly. She has been up for some short distance ambulation. Has needed up to max assist with transfers, on occasion min assist. ASSESSMENT: A 76-year-old -Algerian female with the following problem list: 1. Medical complexity with generalized debilitation. 2. Small-bowel obstruction, status post surgery on 04/18/2017. 3. Multiple pulmonary emboli after surgery. 4. Code blue with respiratory failure, improved. 5. Colitis with inflammation noted of the ascending hepatic flexure of the colon. 6. Hypertension. 7. Anemia. PLAN: The patient is admitted for acute in-hospital inpatient rehabilitation. From a postadmission and physician evaluation perspective, there are no relevant changes since the preadmission screening. Please see the above review of prior and current medical and functional conditions and comorbidities. Please see the patient's previous and current functional status. She has the above noted multiple comorbidities as far as risk of complications. The initial plan of care involves the interdisciplinary acute inpatient rehabilitation program with the goal of maximizing the patient's functional independence, so that she can hopefully return back to her home setting. Prognosis is reasonably good with estimated length of stay probably at least 7-10 days and likely longer. Potential barriers would include her multiple medical comorbidities and decreased functional status. The patient meets diagnostic criteria for an acute in-hospital inpatient rehabilitation stay. She meets the medical necessity criteria and has the [address] [address] HISTORY AND PHYSICAL Name: ABHINAV SUNAshley Ba Room #: 509-P [facility] IN M.R.#: [id number] Admission: 04/26/17 Attend Phys: Jozef Humphries MD Discharge: Date of : 39 Report #: [id number] multiple medical comorbidities as noted above. She does have the tolerance for therapies and has appropriate discharge goals back to the home setting. <ELECTRONICALLY SIGNED> By: Jozef Humphries MD 04/28/17 1608 [id number] [id number] Jozef Humphries MD /nt
[~2017-04-26 10:11] MED LIST: ATENOLOL 25 MG25 M1 PO; LEVOTHYROXIN0.088 MG PO; LOVASTATIN 20 M20 MG PO; PROTONIX40 M1 PO
[2017-04-26] MEDS ORDERED: ELIQUIS5 MG PO (10:16)
[2017-04-26] MEDS ORDERED: AUGMENTIN 875-1 EACH PO (10:16)
[2017-04-26 13:55] VITALS: BP 134/68
[2017-04-26 20:31] VITALS: BP 110/64
[2017-04-27 04:08] LABS: HEMATOCRIT 31.1 % (37.0-47.0); HEMOGLOBIN 9.9 gm/dL (12.0-15.0); MCH 24.1 pg (26.0-34.0); MCHC 31.9 g/dL (28.0-37.0); MCV 75.4 fL (80.0-100.0); RBC 4.12 mil/uL (4.20-5.00); RDW 22.8 % (10.5-14.5)
[2017-04-27 04:19] LABS: CALCIUM 8.8 mg/dL (8.5-10.1); CREATININE 0.6 mg/dL (0.6-1.0); POTASSIUM 3.3 mmol/L (3.5-5.1)
[2017-04-27 08:15] VITALS: BP 119/75
[2017-04-27 20:30] VITALS: BP 123/66
[2017-04-28 08:32] VITALS: BP 116/64
[2017-04-29 07:25] VITALS: BP 113/60
[2017-04-29 19:34] VITALS: BP 101/61
[2017-04-30 08:00] VITALS: BP 127/53
[2017-04-30 20:03] VITALS: BP 126/56
[2017-05-01 05:07] LABS: HEMATOCRIT 25.9 % (37.0-47.0); HEMOGLOBIN 8.6 gm/dL (12.0-15.0); MCH 24.9 pg (26.0-34.0); MCHC 33.2 g/dL (28.0-37.0); RBC 3.46 mil/uL (4.20-5.00); RDW 23.7 % (10.5-14.5); WBC 6.2 thou/uL (4.0-11.0)
[2017-05-01 05:23] LABS: ALBUMIN 1.9 g/dL (3.4-5.0); CALCIUM 8.2 mg/dL (8.5-10.1); CREATININE 0.6 mg/dL (0.6-1.0); TOTAL BILIRUBIN 0.2 mg/dL (<0.1-1.0); TOTAL PROTEIN 5.3 g/dL (6.4-8.2)
[2017-05-01 05:30] LABS: POTASSIUM 2.6 mmol/L (3.5-5.1)
[2017-05-01 08:00] VITALS: BP 129/51
[2017-05-01 19:45] VITALS: BP 122/56
[2017-05-02 20:16] VITALS: BP 138/57
[2017-05-03 07:51] VITALS: BP 123/58
[2017-05-03 19:50] VITALS: BP 116/62
[2017-05-04 06:49] LABS: CALCIUM 8.6 mg/dL (8.5-10.1); CREATININE 0.5 mg/dL (0.6-1.0)
[2017-05-04 08:00] VITALS: BP 119/61
[2017-05-04 19:45] VITALS: BP 111/63
[2017-05-05 21:03] VITALS: BP 121/59
[2017-05-06 08:00] VITALS: BP 128/64
[2017-05-06 20:28] VITALS: BP 131/58
[2017-05-07 09:07] VITALS: BP 131/58
[2017-05-07] MEDS ORDERED: ELIQUIS5 MG PO (09:42)
[2017-05-07 10:45] VITALS: BP 131/58
== END 2017-05-07 10:35 | disposition home or self-care (01) | DRG 947 ==
PROVIDERS: Hospitalist; Internal Medicine; Physical Medicine & Rehabilitation
DX: R53.81 Other malaise (principal); I26.99 Other pulmonary embolism without acute cor pulmonale; J96.90 Respiratory failure, unspecified, unspecified whether with hypoxia or hypercapnia; K56.60 Unspecified intestinal obstruction; I10 Essential (primary) hypertension; E03.9 Hypothyroidism, unspecified; K21.9 Gastro-esophageal reflux disease without esophagitis; K52.9 Noninfective gastroenteritis and colitis, unspecified; D64.9 Anemia, unspecified; E87.6 Hypokalemia; I27.2 Other secondary pulmonary hypertension
CPT/HCPCS: 10112

== ENCOUNTER 2017-05-28 13:01 | Inpatient (IN) | payer OTHER, BC ==
[~2017-05-28] VITALS: Ht 152.4 cm; Wt 78.5 kg
--- NOTE | ~2017-05-28 | HC ---
[facility] [place] [address] CONSULTATION Name: LESLI SUN Room #: 417-I ADM IN ..#: [id number] Admission: 05/28/17 Attend Phys: Nia Ortiz MD Discharge: Date of : 39 Report #: [id number] THIS REPORT FOR: //name// CC: Nia Braswell DATE OF SERVICE: 05/29/2017 CONSULTATION: Infectious diseases. HISTORY OF PRESENT ILLNESS: The patient is a 76-year-old female admitted to [facility] on 05/28/2017 complaining of severe pain in her left hip. The patient admitted to the Emergency Room at [facility] on May 26, apparently the workup was negative and they said she just had a sprain. This seemed unusual since the patient really had no trauma. She continued to develop pain and also developed pain in her left wrist spontaneously. She again was seen in the ER and no diagnosis was made. The pain progressed to the point where she could not even bear weight on the hip or move it forward. She came to the ER, [facility] where she was evaluated and admitted. CT scan was done, which was very worrisome. It showed what appeared to be gas in the left hip joint. There was not excess fluid in the hip, additional gas bubbles in the psoas muscle on the left and a fluid pocket in the iliacus muscle measuring 1 x 3.4 x 6 cm. The patient was admitted to the hospital with concerns of possible gas forming infection in the rectal peritoneum. Infectious Disease consultation was requested. It is notable that the patient underwent exploratory laparotomy on April 18. At that time, the patient presented with a small-bowel obstruction, which did not respond to conservative management. She went to the operating room where it was found that she had extensive adhesions from a previously done uterine myomectomy. The patient had lysis of adhesions. There was no ____ the bowel and no resection. When the adhesions were lysed and an internal hernia reduced, they were able to run the bowel completely. The patient was working with physical therapy 2 days after surgery when she collapsed while walking. This turned into a witnessed code blue event and CT angiogram showed a large pulmonary embolus. The patient was on the ventilator and then weaned and then sent up for acute rehab on April 26 for 10 days of reconditioning. She had been home for approximately 3 weeks prior to returning to the hospital with her new symptoms. PAST MEDICAL HISTORY: Also significant for hypertension, anemia, hypothyroidism and gout. MEDICATION RECONCILIATION: Current medications include heparin, flu vaccine, atenolol 25 mg daily, L-thyroxine 88 mcg daily, pantoprazole 20 mg daily, p.r.n. Zofran and fentanyl. The patient has been started on vancomycin [place] [address] CONSULTATION Name: LESLI SUN Room #: 417-I [facility] IN ..#: [id number] Admission: 05/28/17 Attend Phys: Nia Ortiz MD Discharge: Date of : 39 Report #: [id number] the ER. FAMILY HISTORY: Noncontributory. SOCIAL HISTORY: The patient is . She does not use tobacco, alcohol or drugs. REVIEW OF SYSTEMS: The patient is not complaining of fevers, chills, sweats. She is not really weak, but just has so much pain on her left side that she cannot bear weight or move it. The patient denies any headache, sinus congestion, sore throat, trouble swallowing. She denies any cognitive dysfunction. The patient denies cough, chest pain, shortness of breath. Her abdomen has been doing reasonably well postoperatively. Her bowel function has returned. She is eating well. She really did not have any abdominal pain. The extremities showed swelling and pain in the left wrist markedly limiting her ability to have any motion. In addition, she has marked limitation of motion and severe pain with motion in the left hip. PHYSICAL EXAMINATION: GENERAL: The patient appears comfortable, lying in bed, in no distress. She is awake, alert and appropriate. VITAL SIGNS: Show temperature of 37.4, blood pressure is normal. SKIN: Shows no rash, no lesions. Surgical wounds are healing well. ENT: ENT examination is negative. Oral cavity is normal. NECK: Supple. HEART: Sounds normal. LUNGS: Clear. ABDOMEN: Belly is soft, not tender. There is no guarding. There is no rebound, no mass, no organomegaly. EXTREMITIES: The left wrist shows marked erythema at the medial radial carpal joint. She has no ability to dorsiflex the wrist. She has marked pain with pronation and supination. The area is erythematous and warm. It is exquisitely tender. It is not, however, particularly swollen. The left hip looks normal to visible examination, however, any attempt to move the leg actively or passively cause excruciating pain in the groin area. The patient was able to try to sit up in bed a little bit without too much discomfort. The distal extremities are unremarkable. LABORATORY DATA: White count is 13.8. Hemoglobin was 8.6 when she was in rehab on May 01, it was down to 6.1 in the ER with hematocrit 18.9%. Platelets 368,000. Electrolytes, BUN and creatinine are normal. Liver function tests normal. Glucose normal. Albumin low at 2.0. CPK elevated at 377. The blood cultures times 2 were drawn and one is drawing a gram-positive kalyn. IMAGING STUDIES: Include the CT scan as described above. There was bilateral atelectasis or infiltrate on the chest portion of the abdominal CT. It is also [address] [address] CONSULTATION Name: DINOLESLI Room #: 417-I ADM IN [facility].#: [id number] Admission: 05/28/17 Attend Phys: Nia Ortiz MD Discharge: Date of : 39 Report #: [id number] noted that the distal esophagus appeared to be dilated, possibly due to stricture or partial obstruction. Stool for occult blood times 1 was negative. ASSESSMENT AND PLAN: In summary, we have a patient who is now 6 weeks after what sounds like a fairly routine exploratory laparotomy for bowel obstruction due to an internal hernia and adhesions. Her postoperative course was complicated by a large pulmonary embolus with a bradycardic code blue event. She covered well and went to rehab and now presents with what looks like iliopsoas abscess. I discussed with Dr. York. He is not convinced that the CT actually shows gas in the joint itself. He noted that ____ unusual to have this amount of infection of the hip joint without an effusion. Certainly an iliopsoas abscess can cause extreme pain with motion in the hip. The wrist may represent gout or pseudogout associated with her severe illness. At this time, we have asked [facility] to come in to place a drain into the iliacus fluid pocket. Would repeat blood cultures. Gram-positive rods are usually contaminant, but in this setting bacteroides or clostridial bacteremia with retroperitoneal abscess would be possible. I would like to check lactate and procalcitonin. I would like to obtain records from the ER at [facility] to see if any blood work or cultures were done on their workup earlier this week. I have added that a PICC line be placed as I anticipate the patient will probably be on intensive antibiotic therapy and initiate antibiotics with vancomycin plus Zosyn. I appreciate the opportunity to offer input in the care of this complex patient. We will see if the radiologist is able to drain the abscess. If the patient does not respond to antibiotics and drainage, she may require open surgery to fully investigate the iliopsoas process and clean it out. We will want to watch the hip and if develops an effusion, we can do an aspiration looking for infection; however, in the absence of fluid, it is unlikely that we are dealing with a septic joint per se. We want to watch the wrist and this may also benefit from aspiration should it develop an effusion, although Dr. York and I think ____ probably a secondary reactive process and not a primary infection. I appreciate the opportunity to offer input in the care of this complex patient. I will be happy to follow her through the weekend until Dr. Joseph Steiner returns on Tuesday. Thank you for this consultation. By: [id number] Nawaf Craft MD /nt
--- NOTE | ~2017-05-28 | H ---
[facility] [place] [address] HISTORY AND PHYSICAL Name: DINOLESLI Mejia Room #: 170-2 ADM IN M.R.#: [id number] Admission: 05/28/17 Attend Phys: Nia Ortiz MD Discharge: Date of : 38 Report #: [id number] THIS REPORT FOR: //name// CC: Nia Braswell REASON FOR PRESENTATION: Left hip pain, inability to walk of few days' duration. HISTORY OF PRESENT ILLNESS: The patient is a 76-year-old who was in the hospital back in 04/2017 for small-bowel obstruction, and she ended up having a laparoscopic procedure that got converted to an open procedure with adhesiolysis and umbilical hernia repair. She is known to have hypertension. She is also known to have hyperlipidemia. Her hospital course during the month of April was complicated by pulmonary embolism. She is also known to suffer from anemia of uncertain etiology, receiving IV iron. She is maintained on a blood thinner. She had been suffering with left-sided wrist pain, for which she visited [facility] and was told that this is a sprain and given some pain killers. On , she started to have inability to work with left hip pain and was visiting with the Emergency Room of [facility], was yet again told that this is sprain and was sent home. Because of the deterioration in the symptoms, the daughter brought her to the emergency room for further evaluation and management. She denies any fever or chills. No urinary symptoms in the form of frequency, urgency and hesitancy. No ongoing gynecological issues. No GI symptoms in the form of diarrhea or constipation. When she presented to the Emergency Room today, she was found to have an abnormal pelvic CT with retroperitoneal and extraperitoneal gas, with very unusual findings on the left hip CT. I was asked to admit her accordingly. PAST MEDICAL HISTORY: 1. Pulmonary embolism. 2. Small-bowel obstruction, status post adhesiolysis. 3. Hypertension. 4. Anemia. 5. Hypothyroidism. 6. Pulmonary embolism. 7. Gout. 8. Hypertension. ALLERGIES: None. SOCIAL HISTORY: She lives with her . No drug or alcohol abuse. MEDICATIONS: Currently, the patient is maintained on the followin. Eliquis. 2. Atenolol. 3. Protonix. [address] [address] HISTORY AND PHYSICAL Name: LESLI SUN Mejia Room #: 170-2 [facility] IN .R.#: [id number] Admission: 05/28/17 Attend Phys: Nia Ortiz MD Discharge: Date of : 39 Report #: [id number] 4. Levothyroxine. 5. Lovastatin. FAMILY HISTORY: Her mom was hypertensive. REVIEW OF SYSTEMS: GENERAL: No fever or chills, but significant weakness. CARDIOVASCULAR: No chest pain or palpitation. PULMONARY: No cough or hemoptysis. GASTROINTESTINAL: Decreased p.o. intake. GENITOURINARY: No frequency, no urgency. MUSCULOSKELETAL: Severe left wrist pain. Severe left hip pain, inability to move. PHYSICAL EXAMINATION: GENERAL: She is alert, oriented. Seems to be somewhat lethargic, but no apparent distress. VITAL SIGNS: Blood pressure 131/59, temperature 37.1, pulse rate 63, respiratory rate 18. HEAD AND NECK: No jugular venous distention, dry mucous membrane. CHEST: Clear to auscultation bilaterally with no added sounds. CARDIOVASCULAR: Regular with no rub detected. ABDOMEN: Soft, nontender. There is a scar in the infraumbilical area from her recent surgery. LOWER EXTREMITIES: +2 edema on both lower extremities. She is extremely tender on the left thigh area. Left wrist area is erythematous and inflamed. LABORATORY VALUES: Reviewed. White blood cell count is elevated at 13.5. Hemoglobin 6.8, with a low MCV. Chemistry with a mildly elevated glucose at 111. Lactic acid is 0.9. Imaging including her pelvic CT and wrist x-ray were reviewed. ASSESSMENT, IMPRESSION AND PLAN: 1. Very concerning CT finding with possible necrotizing fascitis versus an ongoing intraabdominal process with extensive left extraperitoneal and retroperitoneal gas. 2. Elevated white blood cell count. 3. Elevated C-reactive proteins with symptoms. 3. Anemia with the low MCV. 4. Hypertension. 5. Recent pulmonary embolism. 6. Recent abdominal surgery. 7. Admission. 8. Harden cultures. 9. [place] [address] HISTORY AND PHYSICAL Name: LESLI SUN Mejia Room #: 170-2 ADM IN M.R.#: [id number] Admission: 05/28/17 Attend Phys: Nia Ortiz MD Discharge: Date of : 39 Report #: [id number] 10. Hold Eliquis. 11. IV fluids. This is a rather unusual presentation. I am concerned about her recent surgery with those CT findings. 1. I will obtain surgical consultation. 2. Obtain ESR. 3. C-reactive protein was highly elevated, suggestive of an ongoing process. 4. Check CPK. 5. Necrotizing fascitis is a possibility, and I will talk with the general surgeon about the next step. 6. Orthopedic consultation was obtained for her left hip finding and left wrist. I do not think that this will need any orthopedic intervention at this time and given the multi-joint presentation, I will send appropriate. rheumatological screen. 7. Start empiric antibiotic. 8. Pain control. 9. Nausea and vomiting control. 10. Holding Eliquis. 11. We will anticoagulate with Lovenox for now. 12. Resume her thyroid medications. This is a rather sick presentations, and we might need to escalate her care to the Intensive Care Unit. By: 1647 [id number] Nia Ortiz MD /yarelis
--- NOTE | ~2017-05-28 | HC ---
[facility] [place] [address] CONSULTATION Name: LESLI SUN Mejia Room #: 426-P [facility] IN ..#: [id number] Admission: 05/28/17 Attend Phys: Nia Ortiz MD Discharge: 06/03/17 Date of : 39 Report #: [id number] THIS REPORT FOR: //name// CC: Nia Braswell DATE OF SERVICE: 05/31/2017 HISTORY OF PRESENT ILLNESS: This is a 76-year-old -[place] female previously known to me from a prior acute in-hospital inpatient rehabilitation stay. She was on the acute inpatient rehab reddy, 04/26/2017 to 05/07/2017, after being treated for small bowel obstruction with open repair and a pulmonary embolism. She did progress in her therapies, was able to achieve a functional level where she was ambulating 350 feet with a 4-wheeled walker, standby assistance. She was able to return back to the home setting where she lives with her . She unfortunately has had subsequent problems with left hip pain and inability to walk of a few days' duration with flank discomfort. Workup has revealed a pelvic abscess, thought to be bowel sores with retroperitoneal perforation with extension into the hip soft issues per Infectious Disease. She has undergone percutaneous drain placement and Surgery has been consulted to follow. Concurrent with this, she also was noted to have left wrist inflammatory arthritis. I am seeing her now in rehabilitation medicine consultation. PAST MEDICAL HISTORY: Includes the prior small-bowel obstruction with open repair, pulmonary embolism, history of hypertension, anemia, hypothyroidism, and GERD. MEDICATIONS: Please see the full medication listing. ALLERGIES: No known drug allergies. HABITS: No history of tobacco or alcohol abuse. SOCIAL HISTORY: Lives in a house with her . He works during the day, but is present at night. There is one-step in. She went home at a walker level from her last admission. REVIEW OF SYSTEMS: She has complaints regarding her pelvic area as well as the left wrist. She has discomfort moving the left lower extremity. Complaints of generalized weakness. No current complaints of chest pain or shortness of breath. PHYSICAL EXAMINATION: GENERAL: A 76-year-old -[place] female in no obvious distress. The patient is [place] [address] CONSULTATION Name: LESLI SUN Room #: [facility].#: [id number] Admission: 05/28/17 Attend Phys: Nia Ortiz MD Discharge: 06/03/17 Date of : 39 Report #: [id number] VITAL SIGNS: Last recorded temperature 98.1, pulse 77, respirations 17, and blood pressure 108/57. HEENT: Appeared benign. NEUROLOGIC: Cranial nerves are grossly intact. EXTREMITIES: She has functional range of motion of the right upper extremity with strength grade 3+ to 4-/5. Left upper extremity, she tends to hold the left wrist elevated. She does have some swelling and warmth of the left wrist. I could not detect any obvious erythema. She favors moving the left wrist with discomfort with attempted extension and flexion. She is able to move the fingers, but has decreased vice president of nursing with discomfort. Proximal strength is probably a grade 3+/5. In her lower extremities, she has strength of the right lower extremity of probably a grade 3+. Left lower extremity was more painful for her with attempted proximal movement. I can get her to move her knee and ankle, probably a grade 2+ with discomfort. No focal calf swelling. She was able to sit to stand with max assist and ambulated 6 feet max assist with a front-wheeled walker. ASSESSMENT: A 76-year-old -[place] female previously known to me with the following problem list: 1. Pelvic abscess with percutaneous drain, suspected bowel sores with retroperitoneal perforation into the left hip soft issues. 2. Inflammatory left wrist arthritis. 3. Recent small bowel obstruction. 4. Recent bilateral pulmonary emboli. 5. Exogenous obesity. 6. Protein-calorie malnutrition. PLAN: The patient is at a lower functional level with the discomfort from her pelvic and left hip area as well as her left wrist area. We are working on functional mobility and transfers with therapy, continuing to work with her. She was recently on the [address] inpatient rehabilitation reddy within the past month. Unfortunately, I do not see that she has a new rehab diagnosis to warrant another stay. I would anticipate we will need to consider other therapy options as she further medically stabilizes. <ELECTRONICALLY SIGNED> By: Jozef Humphries MD 06/07/17 1105 [id number] [id number] Jozef Humphries MD /[facility]
--- NOTE | ~2017-05-28 | HC ---
[facility] [place] [address] CONSULTATION Name: DINOLESLI Room #: 426-P [facility]..#: [id number] Admission: 05/28/17 Attend Phys: Nia Ortiz MD Discharge: 06/03/17 Date of : 39 Report #: [id number] THIS REPORT FOR: //name// CC: Nia Braswell DATE OF SERVICE: 05/31/2017 HISTORY OF PRESENT ILLNESS: I was asked to evaluate this 76-year-old lady who presented to Emergency Department complaining of left pelvic pain for approximately 3 days. The patient reports that she was getting out of her 's truck when she heard a loud pop, started to have left pelvic pain. She noticed that she developed left hand pain from her trying to pull her up from her fall. She denies any gastrointestinal disease or illness. Has had no diarrhea or loose stools and has no abdominal pain recently. The patient did undergo an exploratory laparotomy in early April of 2017 for a distal small-bowel obstruction involving the jejunum adherent to the apex of the uterus. She had no bowel resection at that time. In the immediate postoperative period, approximately 2-3 days postop, she was ambulating when she suddenly had a respiratory, cardiac arrest secondary to pulmonary embolus. She had chest compressions and she resolved from this episode very nicely. She seems to have no and was able to tolerate physical therapy and was subsequently discharged on 05/06/2017. PAST MEDICAL AND SURGICAL HISTORY: Consistent with hypertension, anemia, hypothyroidism, GERD, small-bowel obstruction resection 04/17/2017 with repair of an umbilical hernia, pulmonary embolism and AL on 04/20/2017. CURRENT MEDICATIONS: Eliquis 5 mg daily, atenolol 25 mg, lovastatin 20 mg daily, levothyroxine 0.088 mg daily and Protonix 40 mg daily. ALLERGIES: No known drug allergies. SOCIAL HISTORY: She does not use tobacco or alcohol and has no illicit drug use. Lives with her . REVIEW OF SYSTEMS: A 10-point review of systems essentially noncontributory except for the left hip pain. PHYSICAL EXAMINATION: GENERAL: Reveals a patient who is alert, cooperative. She is afebrile. Glasses for acuity. Daughters are at the bedside. NECK: Supple, no adenopathy. LUNGS: Clear bilaterally. CARDIOVASCULAR: Regular rate and rhythm. ABDOMEN: Nontender. Well healed midline incision. The patient has no [facility] [address] [place] [address] CONSULTATION Name: LESLI SUN Room #: 426-P [facility]#: [id number] Admission: 05/28/17 Attend Phys: Nia Ortiz MD Discharge: 06/03/17 Date of : 39 Report #: [id number] significant tenderness to palpation of the left hip area. The patient does have some tenderness to the left medial thigh region. She has no areas of cellulitis or subcrepitation consistent with necrotizing fasciitis. DIAGNOSTIC IMPRESSION: The patient by CT scan has a left iliacus abscess which is small or psoas abscess. She has not had necrotizing fasciitis at this time. PLAN: I would recommend Interventional Radiology for drainage procedure and placement of a catheter. We will follow her with you. Thank you for allowing us to participate in her care. By: 1522 1805 Mateo Rogers MD, FACS /nt
--- NOTE | ~2017-05-28 | HC ---
[facility] [place] [address] CONSULTATION Name: LESLI SUN Room #: 417-I [facility] IN ..#: [id number] Admission: 05/28/17 Attend Phys: Nia Ortiz MD Discharge: Date of : 39 Report #: [id number] THIS REPORT FOR: //name// CC: Nia Braswell CHIEF COMPLAINT: Left hip pain, possible retroperitoneal abscess. HISTORY OF PRESENT ILLNESS: This 76-year-old female presents with a confusing history of increasing left flank and hip discomfort over the past week. She states symptoms started when she was awkwardly getting in or out of her 's truck and stumbled. He supported her with the left hand and wrist, causing some hand and wrist discomfort. She was seen and x-rays of the hip revealed no apparent abnormalities. She states symptoms persisted and she came to the Emergency Room for a CT scan. That study reveals findings suggestive of an abscess in the retroperitoneum, extending along the iliopsoas and out toward the left hip. While there is no fluid in the joint, nor a localized abscess in and around the joint, there does appear to be possibly gas in and around the joint and in the surrounding soft tissues. Her recent medical history is significant as she had an abdominal laparotomy procedure about 6 weeks ago, which went uneventfully. Postoperatively; however, she had a pulmonary embolus and a cardiac event with a sudden cardiac arrest. She was revived and stabilized and was discharged from the hospital, apparently doing well about one week later. She states she has been doing reasonably well over the past month until this new event and new left hip pain. At the time of my evaluation, she is alert and oriented and in only mild discomfort. Her discomfort is principally at the left wrist, which is benefited with rest and ice and some generalized vague discomfort in the left flank, hip, buttock and thigh region. She is afebrile. She certainly does not appear septic and does not complain of significant abdominal discomfort. She has apparently been eating a regular diet and has had recently normal GI function and normal bowel movements. PHYSICAL EXAMINATION: The right upper extremity and the right lower extremity appear to be normal without localized discomfort. The left upper extremity demonstrates good movement at the shoulder and elbow without pain. The left wrist is mildly edematous and is somewhat tender to palpation and with movement suggestive of synovitis or a wrist sprain. There is no deformity and nothing which would suggest fracture, but the left hip and groin region are mildly tender to palpation, but there is no well-localized point tenderness. There is no significant swelling, bruising, redness or warmth. She does have mild discomfort with both internal and external rotation of the hip and some pain with hip flexion. The left knee, lower leg, foot and ankle appear to be normal. IMAGING STUDIES: Including CT scan and plain x-ray revealed no evidence of [address] [address] CONSULTATION Name: DINOLESLI Mejia Room #: 417-I [facility] IN M.R.#: [id number] Admission: 05/28/17 Attend Phys: Nia Ortiz MD Discharge: Date of : 39 Report #: [id number] fracture nor significant degenerative change about the left hip. Plain x-rays of left wrist also reveal normal bony architecture with only minor degenerative change. The CT scan of the pelvis and left hip is confusing, but is suggestive of a retroperitoneal abscess along the psoas muscle. IMPRESSION: I have discussed this at some length with Dr. Craft and Dr. Steiner. I do not feel there is a significant joint effusion, nor evidence of fracture nor other joint problems which would be clearly benefited with orthopedic surgical intervention. I am concerned about the possibility of a deep retroperitoneal abscess, and agree with plans for Interventional Radiology for access to the fluid collection and drainage. I am certainly happy to consider orthopedic intervention for arthrotomy at the hip joint if necessary, but at this point, I would be reluctant to engage in an aggressive surgical approach, given the lack of fluid in the joint and also with concerns about her recent history of severe cardiac event with sudden cardiac arrest just about 6 weeks ago. At this point, I will continue to follow with you, but we will plan on conservative management, unless more significant structural problems with the hip joint demand further intervention. <ELECTRONICALLY SIGNED> By: Jozef York MD 05/30/17 0719 1255 1448 Jozef York MD /nt
--- NOTE | ~2017-05-28 | S ---
[facility] [place] [address] SURGICAL PATH RPT PROCEDURE Name: LESLI SUN Room #: 426-P ADM IN M.R.#: [id number] Admission: 05/28/17 Date of : 39 Discharge: Report #: [id number] Path Case #: [id number] PATHOLOGY REPORT COLLECTION DATE: 05/30/2017 RECEIVED DATE: 05/30/2017 SUBMITTING PHYS: Dr. Nia Ortiz OTHER PHYS: Dr. Camilo Braswell SPECIMEN(S) RECEIVED: A.Peripheral smear * * * * * * * * * * * * FINAL DIAGNOSIS: Peripheral blood smear: - Severe microcytic anemia and mild leukocytosis / neutrophilia. (see comment) COMMENT: Overall, the peripheral blood has severe microcytic anemia and mild leukocytosis / neutrophilia. The platelet count is within the normal reference range. The etiology of the findings is unclear based entirely on slide review. Potential causes of microcytic anemia include iron deficiency, thalassemia, and other hemoglobinopathies. The mild leukocytosis / neutrophilia is likely related to the patient's underlying medical condition. Correlation with clinical history and additional laboratory data is recommended. (ZELDAW:; 06/01/2017) PATHOLOGIST: Elsa Mccracken M.D. REPORT ELECTRONICALLY SIGNED BY: Elsa Mccracken M.D. DATE/TIME: 06/01/2017 15:10 * * * * * * * * * * * * MICROSCOPIC DESCRIPTION: CBC Data (05/30/17): WBC 12,700 /uL, RBC 2.98, hemoglobin 7.6 g/dL, hematocrit 23.5%, MCV 78.8 fL, MCH 25.5 pg, MCHC 32.4 g/dL, RDW 21.2%, and platelet count 364,000 /uL. Automated white blood cell differential: segs 88.2%, lymphs 4.1%, monos 5.2%, eos 2.3%, and basos 0.2%. Peripheral Blood Smear: Cytomorphological examination of the Urbina's stained peripheral blood smear confirms the provided data. Red blood cells show severe microcytic anemia with mild to moderate anisocytosis. No significant poikilocytosis is identified. Occasional target cells are noted. No schistocytes or microspherocytes are seen. White blood cells are mildly increased in number. They are predominantly segmented [address] [address] SURGICAL PATH RPT PROCEDURE Name: LESLI SUN Mejia Room #: 426-P ADM IN M.R.#: [id number] Admission: 05/28/17 Date of : 39 Discharge: Report #: [id number] Path Case #: [id number] neutrophils and are without significant dyspoiesis or significant left shift. Lymphocytes are predominantly small, round, and mature appearing with condensed chromatin and scant cytoplasm with admixed large granular lymphocytes. On scanning, no markedly atypical lymphoid cells are seen. Monocytes are mature. Platelets are adequate in number and mainly normal in morphology with rare larger platelets noted. CLINICAL HISTORY: 76 year-old woman with anemia. Morphologic review of the peripheral blood smear is requested by the patient's physician. INITIAL CPT CODE(S): A; [place] Professional services performed by [facility] at [facility] [address] [place] [address] Technical services performed by [facility] at [address] [place] [address], [address], [place] [address]. [facility] [address] [place] [address] PHONE: [phone] DIRECTOR: Yanick Ariza M.D. * * * END OF REPORT * * *
[~2017-05-28 13:01] MED LIST changes: +AUGMENTIN 875-1 EACH PO; +ELIQUIS5 MG PO
[2017-05-28 13:03] VITALS: BP 131/59
[2017-05-28 15:06] LABS: MCHC 32.1 g/dL (28.0-37.0); WBC 13.5 thou/uL (4.0-11.0)
[2017-05-28 15:08] LABS: ABSOLUTE NEUTROPHILS 12.1 thou/uL (1.4-8.2); EOSINOPHILS 1.2 % (0.0-3.0); HEMATOCRIT 21.1 % (37.0-47.0); LYMPHOCYTES 2.4 % (24.0-44.0); MCH 24.8 pg (26.0-34.0); MCV 77.2 fL (80.0-100.0); MONOCYTES 5.7 % (1.0-8.0); PLATELET COUNT 406 thou/uL (150-400); POLYS 89.7 % (36.0-66.0); RBC 2.74 mil/uL (4.20-5.00)
[2017-05-28 15:13] LABS: CALCIUM 8.8 mg/dL (8.5-10.1); POTASSIUM 3.8 mmol/L (3.5-5.1)
[2017-05-28 15:14] LABS: MANUAL DIFF NO
[2017-05-28 15:16] LABS: HEMOGLOBIN 6.8 gm/dL (12.0-15.0)
[2017-05-28 15:18] LABS: TOTAL BILIRUBIN 0.5 mg/dL (<0.1-1.0); TOTAL PROTEIN 5.6 g/dL (6.4-8.2)
[2017-05-28 15:20] LABS: URINE BILIRUBIN NEGATIVE (Negative); URINE BLOOD 1+ (Negative); URINE COLOR YELLOW; URINE GLUCOSE-RANDOM* NEGATIVE (Negative); URINE KETONES TRACE (Negative); URINE NITRITE NEGATIVE (Negative); URINE PROTEIN (DIPSTICK) 1+ (Negative); URINE SPECIFIC GRAVITY 1.015 (1.003-1.035); URINE UROBILINOGEN 0.2 E.U./dl (0.2-1.0)
[2017-05-28 15:27] LABS: CASTS None Seen /LPF (None Seen); SQUAMOUS 0-3 Few /LPF (0-3)
[2017-05-28 15:28] LABS: AMORPHOUS URATES Few /LPF (None Seen); BACTERIA None Seen /HPF (None Seen); URINE RBC 3-10 Few /HPF (0-2); URINE WBC 0-5 Rare /HPF (0-5)
[2017-05-28 15:37] LABS: ANISOCYTOSIS 2+; TARGET CELLS 1+
[2017-05-28 15:38] LABS: POLYCHROMASIA OCCASIONAL
[2017-05-28 15:39] LABS: HYPOCHROMASIA 2+; SCHISTOCYTES OCCASIONAL
[2017-05-28 16:31] VITALS: BP 131/59
[2017-05-28 16:55] LABS: URIC ACID* 4.8 mg/dL (2.6-7.2)
[2017-05-28 18:17] VITALS: BP 126/56
[2017-05-28 19:05] VITALS: BP 130/65
[2017-05-28] MEDS ORDERED: LASIX 80 MG TAB80 MG PO (19:27)
[2017-05-28] MEDS ORDERED: HYDROCODONE-AP1 EAC6 PO (19:31)
[2017-05-28] MEDS ORDERED: POTASSIUM20 PO (19:33)
[2017-05-29] VITALS (8 sets, daily range): BP systolic 113–142; BP diastolic 45–73
[2017-05-29 03:57] LABS: MCH 24.5 pg (26.0-34.0); MCHC 32.2 g/dL (28.0-37.0); MCV 76.1 fL (80.0-100.0); RBC 2.48 mil/uL (4.20-5.00); RDW 20.7 % (10.5-14.5); WBC 13.8 thou/uL (4.0-11.0)
[2017-05-29 04:05] LABS: HEMATOCRIT 18.9 % (37.0-47.0); HEMOGLOBIN 6.1 gm/dL (12.0-15.0)
[2017-05-29 11:38] LABS: PROTIME 10.1 Seconds (9.3-11.4)
[2017-05-29 11:41] LABS: APTT 38.7 Seconds (24.5-32.8)
[2017-05-29 12:07] LABS: IgA 207 mg/dL (64-422); IgG 725 mg/dL (700-1600); IgM 31 mg/dL (26-217)
[2017-05-29 21:53] LABS: PREALBUMIN 3.7 mg/dL (18.0-35.7)
[2017-05-30 01:00] VITALS: BP 118/42
[2017-05-30 04:30] VITALS: BP 127/50
[2017-05-30 05:28] LABS: HEMATOCRIT 23.2 % (37.0-47.0); HEMOGLOBIN 7.6 gm/dL (12.0-15.0); MCH 25.7 pg (26.0-34.0); MCHC 32.8 g/dL (28.0-37.0); MCV 78.2 fL (80.0-100.0); RBC 2.97 mil/uL (4.20-5.00); RDW 20.8 % (10.5-14.5); WBC 12.6 thou/uL (4.0-11.0)
[2017-05-30 08:00] VITALS: BP 140/60
[2017-05-30 09:09] LABS: ABSOLUTE RETIC COUNT 0.0096 10^6/uL; OBSERVED RETIC COUNT 0.33 % (0.6-2.6)
[2017-05-30 09:11] LABS: % SATURATION 6 % (20-39); IRON 9 ug/dL (50-170); TIBC 159 ug/dL (250-450); UIBC 150 ug/dL
[2017-05-30 09:27] LABS: ALBUMIN 1.4 g/dL (3.4-5.0); CALCIUM 7.4 mg/dL (8.5-10.1); CREATININE 0.5 mg/dL (0.6-1.0)
[2017-05-30 09:35] LABS: POTASSIUM 2.6 mmol/L (3.5-5.1)
[2017-05-30 10:12] LABS: FOLIC ACID 10.3 ng/mL (8.6-58.9)
[2017-05-30 16:15] VITALS: BP 104/48
[2017-05-30 19:10] VITALS: BP 107/49
[2017-05-31 03:08] VITALS: BP 119/63
[2017-05-31 05:59] LABS: HEMATOCRIT 22.1 % (37.0-47.0); HEMOGLOBIN 7.2 gm/dL (12.0-15.0); MCH 25.9 pg (26.0-34.0); MCHC 32.6 g/dL (28.0-37.0); MCV 79.3 fL (80.0-100.0); PLATELET COUNT 382 thou/uL (150-400); RBC 2.79 mil/uL (4.20-5.00); RDW 21.1 % (10.5-14.5)
[2017-05-31 06:07] LABS: CALCIUM 7.9 mg/dL (8.5-10.1); CREATININE 0.8 mg/dL (0.6-1.0); POTASSIUM 3.1 mmol/L (3.5-5.1)
[2017-05-31 06:26] LABS: MANUAL DIFF YES
[2017-05-31 07:15] VITALS: BP 115/55
[2017-05-31 09:32] LABS: ABSOLUTE NEUTROPHILS 10.4 thou/uL (1.4-8.2); ANISOCYTOSIS 2+; HYPOCHROMASIA 2+; PLATELET ESTIMATE NORMAL; TOTAL CELL COUNT 100
[2017-05-31 14:37] VITALS: BP 108/57
[2017-05-31 15:12] LABS: HB-F 0 % (0.0-2.0); HGB ELECTROPH. COMMENT Note: (()); Hgb A 97.7 % (94.0-98.0)
[2017-05-31 16:08] LABS: KAPPA FREE LIGHT CHAINS 29.8 mg/L (3.3-19.4); KAPPA/LAMBDA RATIO 0.91 (0.26-1.65); LAMBDA FREE LIGHT CHAINS 32.6 mg/L (5.7-26.3)
[2017-05-31 20:17] VITALS: BP 124/57
[2017-06-01 04:05] VITALS: BP 131/65
[2017-06-01 07:53] VITALS: BP 119/63
[2017-06-01 16:12] LABS: A/G RATIO 0.6 (0.7-1.7); ALBUMIN 1.8 g/dL (2.9-4.4); ALPHA 1 0.4 g/dL (0.0-0.4); ALPHA 2 0.9 g/dL (0.4-1.0); BETA 0.8 g/dL (0.7-1.3); GAMMA 0.7 g/dL (0.4-1.8); M-SPIKE Not Observed g/dL (Not Observed)
[2017-06-01 16:21] LABS: HEMOGLOBIN 6.6 gm/dL (12.0-15.0)
[2017-06-01 16:22] LABS: HEMATOCRIT 20.3 % (37.0-47.0)
[2017-06-01 16:31] VITALS: BP 137/72
[2017-06-01 19:14] VITALS: BP 117/61
[2017-06-01 20:43] VITALS: BP 122/45; BP 130/60
[2017-06-02 01:02] LABS: HEMATOCRIT 23.8 % (37.0-47.0); HEMOGLOBIN 7.9 gm/dL (12.0-15.0)
[2017-06-02 03:07] VITALS: BP 130/63
[2017-06-02 04:43] LABS: ABSOLUTE NEUTROPHILS 10.4 thou/uL (1.4-8.2); BASOPHILS 0.4 % (0.0-2.0); EOSINOPHILS 2.2 % (0.0-3.0); HEMATOCRIT 24.2 % (37.0-47.0); LYMPHOCYTES 8.5 % (24.0-44.0); MCH 26.6 pg (26.0-34.0); MCHC 33.1 g/dL (28.0-37.0); MCV 80.4 fL (80.0-100.0); MONOCYTES 6.1 % (1.0-8.0); PLATELET COUNT 406 thou/uL (150-400); POLYS 82.8 % (36.0-66.0); RBC 3.01 mil/uL (4.20-5.00); RDW 19.6 % (10.5-14.5); WBC 12.6 thou/uL (4.0-11.0)
[2017-06-02 04:50] LABS: MANUAL DIFF NO
[2017-06-02 04:52] LABS: CALCIUM 8.3 mg/dL (8.5-10.1); CREATININE 0.8 mg/dL (0.6-1.0)
[2017-06-02 04:57] LABS: POTASSIUM 2.6 mmol/L (3.5-5.1)
[2017-06-02 07:47] VITALS: BP 129/64
[2017-06-02 15:20] VITALS: BP 139/70
[2017-06-02 20:00] VITALS: BP 113/39
[2017-06-03 04:30] VITALS: BP 135/52
[2017-06-03 06:08] LABS: HEMATOCRIT 23.8 % (37.0-47.0); HEMOGLOBIN 7.8 gm/dL (12.0-15.0); MCH 26.6 pg (26.0-34.0); MCHC 32.7 g/dL (28.0-37.0); MCV 81.1 fL (80.0-100.0); RBC 2.93 mil/uL (4.20-5.00); RDW 20.4 % (10.5-14.5); WBC 13.6 thou/uL (4.0-11.0)
[2017-06-03 08:00] VITALS: BP 148/74
[2017-06-03] MEDS ORDERED: IRON325 PO (09:27)
[2017-06-03] MEDS ORDERED: HYDROCODONE-AP1 EAC6 PO (09:27)
[2017-06-03] MEDS ORDERED: ENOXAPARIN120 MG/0.1 SUBQ (09:28)
[2017-06-03 13:16] VITALS: BP 148/74
[2017-06-03] MEDS ORDERED: PIPERACIL-TAZO4.5 G1 IV (15:54)
== END 2017-06-03 17:51 | DRG 871 ==
LOC: ER 13:01 → 4E 16:28 → EROBS 16:28 → 4E 18:02
PROVIDERS: Family Medicine; Hospitalist; Internal Medicine Gastroenterology; Internal Medicine Hematology & Oncology; Internal Medicine Infectious Disease; Nurse Practitioner; Physician Assistant; Surgery
PROC: 0K9 Muscles, Drainage (ICD-10-PCS; principal; 2017-05-29)
PROC: B244ZZZ Ultrasonography of Right Heart (ICD-10-PCS; principal; 2017-05-29)
PROC: 02H633Z Insertion of Infusion Device into Right Atrium, Percutaneous Approach (ICD-10-PCS; principal; 2017-05-29)
PROC: 30233N1 Transfusion of Nonautologous Red Blood Cells into Peripheral Vein, Percutaneous Approach (ICD-10-PCS; principal; 2017-05-29)
PROC: 0KP Muscles, Removal (ICD-10-PCS; 2017-06-03)
PROC: 0K9P30Z Drainage of Left Hip Muscle with Drainage Device, Percutaneous Approach (ICD-10-PCS; 2017-06-03)
DX: A41.9 Sepsis, unspecified organism (principal); E43 Unspecified severe protein-calorie malnutrition; K68.12 Psoas muscle abscess; K92.2 Gastrointestinal hemorrhage, unspecified; I10 Essential (primary) hypertension; M10.9 Gout, unspecified; E03.9 Hypothyroidism, unspecified; M25.552 Pain in left hip; E78.5 Hyperlipidemia, unspecified; K21.9 Gastro-esophageal reflux disease without esophagitis; D64.9 Anemia, unspecified; E66.9 Obesity, unspecified; E87.6 Hypokalemia; M13.832 Other specified arthritis, left wrist; K64.9 Unspecified hemorrhoids; Z28.21 Immunization not carried out because of patient refusal; I25.2 Old myocardial infarction; Z86.711 Personal history of pulmonary embolism; Z68.33 Body mass index [BMI] 33.0-33.9, adult; Z79.01 Long term (current) use of anticoagulants; Z79.899 Other long term (current) drug therapy; Z86.74 Personal history of sudden cardiac arrest; Z87.19 Personal history of other diseases of the digestive system
CPT/HCPCS: 10783; 27000

== ENCOUNTER → 2017-06-29 | Outpatient (CLI) | payer OTHER, BC ==
[~2017-06-29] MED LIST changes: +ENOXAPARIN120 MG/0.1 SUBQ; +HYDROCODONE-AP1 EAC6 PO; +IRON325 PO; +LASIX 80 MG TAB80 MG PO; +PIPERACIL-TAZO4.5 G1 IV; +POTASSIUM20 PO
--- NOTE | ~2017-06-29 | HC ---
[facility] [place] [address] CONSULTATION Name: LESLI SUN Room #: REG Arlene Tirado#: [id number] Admission: 06/29/17 Attend Phys: Matthew Khanna Discharge: Date of : 38 Report #: [id number] THIS REPORT FOR: //name// CC: Camilo Chavez DATE OF SERVICE: 06/29/2017 INFECTIOUS DISEASE CONSULTATION Seen at the [facility] on June 29. HISTORY OF PRESENT ILLNESS: The patient is a 76-year-old -[place] woman, patient of Dr. Camilo Braswell who apparently was hospitalized at [facility] on a couple of occasions since 04/17/2017. During her initial hospitalization, the patient was evaluated by Dr. Mateo Rogers who made a diagnosis of bowel obstruction and the patient required exploratory laparotomy and lysis of the lesion and repair of umbilical hernia. The patient is later on readmitted to [facility] and she is evaluated by Dr. Nawaf Craft and Dr. Mark Steiner. The patient is diagnosed to have a left iliacus muscle abscess due to Clostridium septicum. The patient was found to have positive blood cultures as well as positive abscess culture with Clostridium septicum. The patient was treated with Zosyn 3.375 grams IV every 8 hours and discharged to a local senior care where she had been residing since the time of discharge on 06/03/2017. When I entered in the examining room in the [facility], the first thing the patient tells me she wants the PICC line removed. She is going home and she can be cared for by Dr. Camilo Braswell. The patient tells me she has some abdominal pain, but this is taken care of by Tylenol. She tells me she no longer has any draining catheter, but she has a right arm PICC. PAST MEDICAL HISTORY: Hypertension. Hypothyroidism, on replacement. Status post exploratory laparotomy. History of cardiorespiratory arrest. History of left iliacus muscle abscess due to Clostridium septicum on treatment with Zosyn. Anemia of chronic disease. Gout. DRUG ALLERGIES: None listed. MEDICATIONS: She is on treatment at the senior care with Zosyn 3.375 grams IV every 8 hours. She is also on treatment with atenolol, levothyroxine, pantoprazole, Zofran. SOCIAL HISTORY: One daughter. I tried to contact Sarah Young who appears to be the DPOA, but I have no answer on telephone number [phone]. REVIEW OF SYSTEMS: Noncontributory. [address] [address] CONSULTATION Name: LESLI USN Room #: [facility] Celestino#: [id number] Admission: 06/29/17 Attend Phys: Matthew Khanna Discharge: Date of : 38 Report #: [id number] PHYSICAL EXAMINATION: GENERAL: Chronically ill-appearing woman. VITAL SIGNS: Blood pressure 120/63, pulse 102, temperature 98.6, O2 saturation 100% on room air. HEENT: Pale conjunctivae. NECK: Supple. LUNGS: Clear. HEART: S1, S2. ABDOMEN: Soft, no masses or megaly. PELVIC: Deferred. RECTAL: Deferred. EXTREMITIES: With pressure dressings. NEUROLOGIC: Grossly within normal limit. She has a right arm PICC. LABORATORY DATA: At the senior care where she is residing, she had blood test done last on June 27 and sodium of 137, potassium 3.9, BUN 5, creatinine 0.4, albumin 2.2. Liver enzymes normal. WBC 6500, hemoglobin 7 g/dL, platelets 493,000. No ESR or CRP available. Notice made that at [facility] the CRP on May 28 was 482 mg per liter, no repeat since. The sedimentation rate was 80 mm per hour on May 29. ASSESSMENT: 1. Left iliacus muscle abscess due to Clostridium septicum complicated by bacteremia, status post percutaneous drainage. 2. Anemia of chronic disease. 3. Malnutrition. 4. Hypertension. 5. History of exploratory laparotomy for small bowel obstruction. SUGGESTIONS: Discussed the patient's situation with Dr. Camilo Braswell who is to see the patient this coming Tuesday at 2:00 p.m. I recommend the patient to have a CRP, ESR and a repeat CT scan of abdomen and pelvis and once all this information is available to us, we can make a recommendation for discontinuation of parenteral antibiotic if abscess all resolved and sedimentation rate and CRP normalized or improved. The patient tells me she does not want to have anything to do with [facility] and she might rather have CAT scan done either at [facility] or ____. She also wants to have the blood test done there. We will contact Dr. Camilo Braswell to see if will proceed in this direction or if he can arrange for the testing to be done at [facility]'s facility of his choice. Dr. Braswell, should you have any questions regarding the care of this patient, [facility] [address] [place] [address] CONSULTATION Name: LESLI SUN Room #: [facility] KESHAV Tirado#: [id number] Admission: 06/29/17 Attend Phys: Matthew Khanna Discharge: Date of : 38 Report #: [id number] please do not hesitate to call me directly at my cell phone, telephone number [phone]. <ELECTRONICALLY SIGNED> By: Matthew Chavez MD 06/30/17 0926 [id number] Matthew Chavez MD /nt
== END ==
LOC: SEN 08:57
DX: I12.9 Hypertensive chronic kidney disease with stage 1 through stage 4 chronic kidney disease, or unspecified chronic kidney disease (principal); D63.1 Anemia in chronic kidney disease; N18.9 Chronic kidney disease, unspecified; E46 Unspecified protein-calorie malnutrition